=== PATIENT | female | born 1995 | race Caucasian/White ===

== ENCOUNTER 2016-10-13 07:40 | Emergency (ER) | payer OTHER ==
[~2016-10-13] VITALS: Ht 160 cm; Wt 46.0 kg
[~2016-10-13 07:40] MED LIST: BIRTH CONTROL; LUTERA1 EAC1 PO; NOHOMEMEDS; OXECTA5 MG PO; PERCOCET 5/31 TABLET PO; TRAZODONE; ZOFRAN4 MG PO
[2016-10-13 08:08] LABS: HEMATOCRIT 44.3 % (36.0-46.0); MCH 29.5 PG (29.0-34.0); MCHC 34.1 G/DL (30.0-36.0); MCV 86.7 FL (83-99); MEAN PLAT.VOLUME 9.2 uM^3 (9.5-12.4); PLATELET COUNT 284 K/uL (156-360); RBC DIS.WIDTH-CV 13.4 % (11.8-14.6); RBC DIS.WIDTH-SD 42.5 % (39-53); RED BLOOD COUNT 5.11 M/uL (3.80-5.20); WHITE BLOOD COUNT 14.2 K/uL (4.1-10.2)
[2016-10-13 08:21] LABS: CHLORIDE 102 mEq/L (99-109); POTASSIUM 3.8 mEq/L (3.7-5.4); SODIUM 138 mEq/L (136-147)
[2016-10-13 08:22] LABS: GLUCOSE 107 mg/dL (70-99)
[2016-10-13 08:24] LABS: ANION GAP 10 MEQ/L (2-14)
[2016-10-13 08:26] LABS: GFR ESTIMATE (CALCULATED) > 59 mL/min/
[2016-10-13 08:27] LABS: UREA NITROGEN (BUN) 10 mg/dL (9-23)
[2016-10-13 08:30] LABS: TROP-I INTERPRETATION NEGATIVE; TROPONIN-I < 0.01 ng/mL (0.0-0.30)
[2016-10-13 09:24] LABS: SERUM ETHYL ALCOHOL < 10 mg/dL
[2016-10-13 10:38] VITALS: BP 104/78
[2016-10-13 11:02] LABS: ADD MEDTOX COMMENT Y; AMPHETAMINE PRESUMPTIVE POSITIVE (500 ng/mL); BARBITURATES NEGATIVE (200 ng/mL); BENZODIAZEPINES NEGATIVE (150 ng/mL); COCAINE NEGATIVE (150 ng/mL); INTERNAL CONTROLS VALID? YES; METHADONE NEGATIVE (200 ng/mL); METHAMPHETAMINE PRESUMPTIVE POSITIVE (500 ng/mL); OPIATES (MORPHINE) NEGATIVE (100 ng/mL); OXYCODONE NEGATIVE (100 ng/mL); PHENCYCLIDINE NEGATIVE (25 ng/mL); PROPOXYPHENE NEGATIVE (300 ng/mL); THC CANNABINOIDS PRESUMPTIVE POSITIVE (50 ng/mL); TRICYCLIC ANTIDEPRESSANTS NEGATIVE (300 ng/mL)
== END 2016-10-13 10:40 | disposition home or self-care (01) ==
LOC: EME 07:40
PROVIDERS: Emergency Medicine
DX: F19.10 Other psychoactive substance abuse, uncomplicated (principal); K21.9 Gastro-esophageal reflux disease without esophagitis; F17.200 Nicotine dependence, unspecified, uncomplicated
CPT/HCPCS: 71020; 80048; 84484; 84999; 85027; 93005; 99281; 99283; G0480

== ENCOUNTER 2016-11-06 18:05 | Emergency (ER) | payer OTHER ==
[~2016-11-06] VITALS: Ht 160 cm; Wt 46.0 kg
[2016-11-06 18:34] LABS: ADD MIUA? NO; BILIRUBIN NEGATIVE; BLOOD NEGATIVE; COLOR YELLOW ((YELLOW)); GLUCOSE (STRIP) NEGATIVE; KETONES NEGATIVE; LEUKOCYTES NEGATIVE; NITRITE NEGATIVE; PROTEIN (STRIP) NEGATIVE; SPECIFIC GRAVITY 1.008 (1.000-1.030); UCUL ADDED? NO; UROBILINOGEN 0.2 MG/DL (0.2-1.0)
[2016-11-06 19:56] LABS: MCH 29.3 PG (29.0-34.0); MCHC 34.3 G/DL (30.0-36.0); MCV 85.7 FL (83-99); MEAN PLAT.VOLUME 9.6 uM^3 (9.5-12.4); PLATELET COUNT 257 K/uL (156-360); RBC DIS.WIDTH-CV 12.8 % (11.8-14.6); RBC DIS.WIDTH-SD 39.8 % (39-53); RED BLOOD COUNT 4.67 M/uL (3.80-5.20); WHITE BLOOD COUNT 16.3 K/uL (4.1-10.2)
[2016-11-06 19:57] LABS: IMM.PLATELET FRACTION 3.2 (1-7)
[2016-11-06 20:12] LABS: CHLORIDE 106 mEq/L (99-109); POTASSIUM 3.8 mEq/L (3.7-5.4); SODIUM 137 mEq/L (136-147)
[2016-11-06 20:14] LABS: GLUCOSE 113 mg/dL (70-99)
[2016-11-06 20:15] LABS: ANION GAP 9 MEQ/L (2-14)
[2016-11-06 20:16] LABS: TOTAL BILIRUBIN 0.3 mg/dL (0.0-1.0)
[2016-11-06 20:17] LABS: ALKALINE PHOSPHATASE 69 IU/L (3-129)
[2016-11-06 20:18] LABS: GFR ESTIMATE (CALCULATED) > 59 mL/min/
[2016-11-06 20:19] LABS: UREA NITROGEN (BUN) 9 mg/dL (9-23)
[2016-11-06 20:27] LABS: QUANTITATIVE HCG < 4.0 MIU/ML
[2016-11-06] MEDS ORDERED: NAPROSYN500 MG PO (20:51)
[2016-11-06 21:07] VITALS: BP 132/75
== END 2016-11-06 21:08 | disposition home or self-care (01) ==
LOC: EME 18:05
DX: R10.2 Pelvic and perineal pain (principal); R10.13 Epigastric pain; D72.829 Elevated white blood cell count, unspecified; Z53.20 Procedure and treatment not carried out because of patient's decision for unspecified reasons; Z87.442 Personal history of urinary calculi; F17.200 Nicotine dependence, unspecified, uncomplicated
CPT/HCPCS: 80053; 81003; 83690; 84702; 85027; 87086; 87210; 99281; 99283

== ENCOUNTER 2017-04-14 01:26 | Emergency (ER) | payer OTHER ==
[~2017-04-14] VITALS: Ht 157.5 cm; Wt 46.3 kg
[~2017-04-14 01:26] MED LIST changes: +NAPROSYN500 MG PO
[2017-04-14 01:42] LABS: HEMATOCRIT 42.2 % (36.0-46.0); MCH 28.6 PG (29.0-34.0); MCHC 33.6 G/DL (30.0-36.0); MCV 84.9 FL (83-99); MEAN PLAT.VOLUME 9.2 uM^3 (9.5-12.4); PLATELET COUNT 347 K/uL (156-360); RBC DIS.WIDTH-CV 13.3 % (11.8-14.6); RBC DIS.WIDTH-SD 41.1 % (39-53); RED BLOOD COUNT 4.97 M/uL (3.80-5.20); WHITE BLOOD COUNT 14.6 K/uL (4.1-10.2)
[2017-04-14 01:55] LABS: CHLORIDE 107 mEq/L (99-109); SODIUM 143 mEq/L (136-147)
[2017-04-14 01:57] LABS: GLUCOSE 119 mg/dL (70-99)
[2017-04-14 01:58] LABS: ANION GAP 13 MEQ/L (2-14)
[2017-04-14 01:59] LABS: TOTAL BILIRUBIN 0.5 mg/dL (0.0-1.0)
[2017-04-14 02:00] LABS: ALKALINE PHOSPHATASE 68 IU/L (3-129)
[2017-04-14 02:01] LABS: GFR ESTIMATE (CALCULATED) > 59 mL/min/
[2017-04-14 02:02] LABS: UREA NITROGEN (BUN) 10 mg/dL (9-23)
[2017-04-14 02:09] LABS: QUANTITATIVE HCG < 4.0 MIU/ML
[2017-04-14 03:21] LABS: LIPASE 12 U/L (1.0-51.0)
[2017-04-14] MEDS ORDERED: PHENERGAN25 MG PR (04:56)
[2017-04-14] MEDS ORDERED: ZOFRAN ODT4 MG PO (04:56)
[2017-04-14] MEDS ORDERED: BENTYL20 MG PO (04:56)
[2017-04-14 05:07] LABS: ADD MIUA? YES; BILIRUBIN NEGATIVE; BLOOD NEGATIVE; COLOR YELLOW ((YELLOW)); GLUCOSE (STRIP) NEGATIVE; KETONES 20; LEUKOCYTES NEGATIVE; NITRITE NEGATIVE; PROTEIN (STRIP) 30; SPECIFIC GRAVITY 1.025 (1.000-1.030); UROBILINOGEN 0.2 MG/DL (0.2-1.0)
[2017-04-14 05:23] LABS: BACTERIA NONE SEEN /HPF; EPITHELIAL CELLS RARE /HPF; MUCUS 2+ /LPF; UCUL ADDED? NO; WHITE BLOOD CELLS 0-5 /HPF (0-5)
[2017-04-14 05:37] VITALS: BP 112/75
== END 2017-04-14 05:38 | disposition home or self-care (01) ==
LOC: EME 01:26 → EXP 01:26
DX: K29.00 Acute gastritis without bleeding (principal); R19.7 Diarrhea, unspecified; F17.200 Nicotine dependence, unspecified, uncomplicated; Z88.8 Allergy status to other drugs, medicaments and biological substances; F32.9 Major depressive disorder, single episode, unspecified
CPT/HCPCS: 80053; 81003; 83690; 84702; 85027; J2405; J7030

== ENCOUNTER 2017-05-15 17:31 | Emergency (ER) | payer OTHER ==
[~2017-05-15] VITALS: Ht 160 cm; Wt 46.9 kg
[~2017-05-15 17:31] MED LIST changes: +BENTYL20 MG PO; +PHENERGAN25 MG PR; +ZOFRAN ODT4 MG PO
[2017-05-15 17:35] VITALS: BP 123/84
[2017-05-15 17:51] LABS: HEMATOCRIT 42.7 % (36.0-46.0); HEMOGLOBIN 14.5 G/DL (11.9-15.5); MCV 85.4 FL (83-99); PLATELET COUNT 266 K/uL (156-360); RBC DIS.WIDTH-CV 13.2 % (11.8-14.6); RBC DIS.WIDTH-SD 41.2 % (39-53); WHITE BLOOD COUNT 9.5 K/uL (4.1-10.2)
[2017-05-15 18:00] LABS: ALBUMIN 4.4 g/dL (3.2-4.8); CHLORIDE 104 mEq/L (99-109); POTASSIUM 3.8 mEq/L (3.7-5.4); SODIUM 138 mEq/L (136-147)
[2017-05-15 18:02] LABS: GLUCOSE 113 mg/dL (70-99)
[2017-05-15 18:03] LABS: TOTAL PROTEIN 7.4 g/dL (6.4-8.3)
[2017-05-15 18:04] LABS: TOTAL BILIRUBIN 0.2 mg/dL (0.0-1.0)
[2017-05-15 18:06] LABS: ALKALINE PHOSPHATASE 64 IU/L (3-129); CREATININE 0.7 mg/dL (0.6-1.3); GFR ESTIMATE (CALCULATED) > 59 mL/min/
[2017-05-15 18:07] LABS: UREA NITROGEN (BUN) 10 mg/dL (9-23)
[2017-05-15 18:08] LABS: AST (GOT) 19 IU/L (2-34)
[2017-05-15 18:09] LABS: ALT (GPT) 15 IU/L (3-49)
[2017-05-15 18:15] LABS: QUANTITATIVE HCG < 4.0 MIU/ML
== END 2017-05-15 18:20 | disposition left against medical advice (07) ==
LOC: EME 17:31
DX: R10.9 Unspecified abdominal pain (principal); Z53.21 Procedure and treatment not carried out due to patient leaving prior to being seen by health care provider
CPT/HCPCS: 80053; 81003; 84702; 85027